=== PATIENT | male | born 1960 | race Caucasian/White ===

== ENCOUNTER 2017-07-23 16:10 | Inpatient (IN) | payer MEDICARE, BC ==
[~2017-07-23] VITALS: Ht 157.5 cm; Wt 91.5 kg
[~2017-07-23 16:10] MED LIST: AZIT600T4 PO; DARU600T3 PO; HYDR-3504 PO; RITO100T PO; SULF1TAB7 PO; TRUV PO
[2017-07-23] MEDS ORDERED: SODIUM CHLORIDE 0.9% 1L BAG IV* STA (18:05)
[2017-07-23] MEDS ORDERED: ACETAMINOPHEN 325 MG TAB PO STA (18:05)
[2017-07-23] MEDS ORDERED: CEFTRIAXONE 1 GM/50 ML (PMX) 50 ML IVPB ONE (18:30)
[2017-07-23] MEDS ORDERED: VANCOMYCIN 1 GM (PMX) 250 ML IVPB SCH (18:30)
--- NOTE | 2017-07-23 19:08 | RADRPT ---
PROCEDURE: XR Chest. CLINICAL INDICATION: Sepsis. TECHNIQUE: Single frontal view. COMPARISON: 11/21/2012. FINDINGS: The lungs are clear. The heart size is normal. There is no pleural effusion. There is no pneumothorax. IMPRESSION: 1. Normal chest radiograph. 2. No significant change from 11/21/2012. RPTAT: QQ .Vasquez Roman MD, MD Date Time Electronically viewed and signed by .Vasquez Roman MD, MD on 07/23/2017 19:08 .R/
[2017-07-23 19:24] LABS: ABNORMAL IP MESSAGE 1; BASOPHIL # 0.1 10^3/ul (0.0-0.1); BASOPHILS % 0.4 % (0.0-2.0); EOSINOPHILS # 0.2 10^3/ul (0.0-0.5); EOSINOPHILS % 1.2 % (0.0-7.0); HEMOGLOBIN 12.2 g/dl (14.0-18.0); LYMPHOCYTES # 2.1 10^3/ul (0.8-2.9); LYMPHOCYTES % 10.8 % (15.0-51.0); MEAN CORPUSCULAR HEMOGLOBIN 34.7 pg (29.0-33.0); MEAN CORPUSCULAR VOLUME 105.1 fl (82.0-101.0); MEAN PLATELET VOLUME 10.8 fl (7.4-10.4); MONOCYTE # 1.6 10^3/ul (0.3-0.9); MONOCYTES % 8.1 % (0.0-11.0); NEUTROPHIL # 15.3 10^3/ul (1.6-7.5); NEUTROPHILS % 78.6 % (39.0-77.0); PLATELET COUNT 335 10^3/UL (140-415); POSITIVE DIFF @See below; RED BLOOD COUNT 3.52 10^6/ul (4.70-6.10); RED CELL DISTRIBUTION WIDTH 12.6 % (11.5-14.5); WHITE BLOOD COUNT 19.5 10^3/ul (4.8-10.8)
--- NOTE | 2017-07-23 19:25 | RADRPT ---
PROCEDURE: Noncontrast CT examination of the right hip CLINICAL INDICATION: Right hip redness. TECHNIQUE: Noncontrast CT examination of the right hip, with axial, sagittal and coronal reformatte d images. Post process 3-D rotating MIP images were obtained over the right hip. CTDI: 49.33 and DLP: 1404.48. COMPARISON: None. FINDINGS: Mild hematoma versus phlegmon versus abscess in the soft tissues of the lateral aspect of the right hip, somewhat obscured secondary to metallic artifact. This measures about 45 mm in the craniocaudad dimension by 31 mm in the transverse dimension by 25 mm in AP dimension, and there is surrounding f at inflammatory changes over the lateral right hip and thigh, as well as mild skin thickening. Right hip arthroplasty is seen with cerclage wire fixation at the lateral greater trochanter. There is no evident hardware complication. There is no evident acute fracture. IMPRESSION: 1. Mild hematoma versus phlegmon versus abscess in the soft tissues of the lateral aspect of the rig ht hip. 2. Ultrasound examination may be of further use. RPTAT: [facility]U Physician Tierra Date Time Electronically viewed and signed by Physician Tierra on 07/23/2017 19:25 RS/
[2017-07-23 19:32] LABS: ADD UMIC YES; UR ASCORBIC ACID NEGATIVE (NEGATIVE); UR BILIRUBIN (Dip) NEGATIVE (NEGATIVE); UR BLOOD (Dip) NEGATIVE (NEGATIVE); UR CLARITY CLEAR (CLEAR); UR COLOR AMBER (YELLOW); UR GLUCOSE (Dip) NEGATIVE (NEGATIVE); UR KETONES (Dip) NEGATIVE (NEGATIVE); UR LEUKOCYTE ESTERASE (Dip) TRACE Leu/ul (NEGATIVE); UR NITRITE (Dip) NEGATIVE (NEGATIVE); UR RBC 1 /HPF (0-5); UR SPECIFIC GRAVITY (Dip) 1.023 (1.003-1.030); UR TOTAL PROTEIN (Dip) 1+ mg/dl (NEGATIVE); UR UROBILINOGEN (Dip) 2+ mg/dL (NEGATIVE)
[2017-07-23 19:38] LABS: INR 1.09; PROTIME 14.1 Sec (12.2-14.2); PT RATIO 1.1
[2017-07-23 19:43] LABS: PARTIAL THROMBOPLASTIN TIME 29.1 Sec (25.0-35.0)
[2017-07-23 19:48] LABS: CALCIUM 9.2 mg/dl (8.4-10.2); CREATININE 1.22 mg/dl (0.61-1.24); POTASSIUM 4.9 mmol/L (3.5-5.1)
[2017-07-23 20:04] LABS: C-REACTIVE PROTEIN 18.9 mg/dl (0.0-0.9)
--- NOTE | 2017-07-23 20:41 | ERD ---
ER Documentation Chief Complaint Chief Complaint right hip pain x5 days HPI This is a 56-year-old male presents to the ER with right hip pain that started . He states that pain began after he was running towards the bus he was going to take. Pain began as a burning pain and now is described as a throbbing pain. He states that his right hip is red and swollen and it also feels hard. Patient has had a fever over the last 3 days. 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 The last hip replacement which was his right hip was 2 years ago. Patient denies any numbness or tingling of his lower extremity. He denies any groin pain. Patient has a past medical history of HIV, and is compliant with all his medications. He denies any chest pain or shortness of breath. ROS 12 point review of systems was done, all negative except per HPI. Medications Home Meds Reported Medications Ritonavir* (Norvir*) 100 Mg Tablet, 1 TAB PO 11/14/12 Darunavir Ethanolate* (Prezista*) 600 Mg Tablet, 1 TAB PO 11/14/12 Azithromycin* (Azithromycin*) 600 Mg Tablet, 1 TAB PO 11/14/12 Sulfamethoxazole-Trimethoprim* (Bactrim* DS) 1 Tab Tab, 1 TAB PO 11/14/12 Hydrocodone Bit-Acetaminophen (Hydrocodone-APAP) 1 Tab Tablet, 1 TAB PO 11/14/12 Emtricitabine-Tenofovir* (Truvada*) 1 Tab Tab, 1 TAB PO DAILY 11/14/12 Allergies Allergies: Coded Allergies: No Known Allergy (Unverified , 11/14/12) PMhx/Soc Medical and Surgical Hx: pt denies Surgical Hx History of Surgery: No Anesthesia Reaction: No Hx Neurological Disorder: No Hx Respiratory Disorders: Yes (PNA) Hx Cardiac Disorders: No Hx Psychiatric Problems: No Hx Miscellaneous Medical Probl: No Hx Alcohol Use: No Hx Substance Use: No Hx Tobacco Use: No Smoking Status: Never smoker Physical Exam Vitals Vital Signs Date Time Temp Pulse Resp B/P Pulse Ox O2 Delivery O2 Flow Rate FiO2 07/23/17 16:23 99.7 110 18 131/77 96 Physical Exam GENERAL: The patient is well developed and appropriate for usual state of health , in no apparent distress. HEENT: Atraumatic. CHEST: Clear to auscultation bilaterally. There are no rales, wheezes or rhonchi. HEART: Regular rate and rhythm. No murmurs, clicks, rubs or gallops. ABDOMEN: Soft, nontender and nondistended. EXTREMITIES: There is an area of erythema to the right hip, it is warm and tender to palpation. Patient has normal abduction of the right, however has a painful abduction of the hip. NEURO: Alert and oriented. Cranial nerves II through XII are intact. Motor strength in all 4 extremities with 5/5 strength. Sensation grossly intact. Normal speech and gait. SKIN: There is no apparent rash or petechia. The skin is warm and dry. Result Diagram: 07/23/17190607/23/171906 Results 24 hrs Laboratory Tests Test 07/23/17 19:00 07/23/17 19:07 Urine Color SADIA Urine Clarity CLEAR Urine pH 5.0 Urine Specific [place] 1.023 Urine Ketones NEGATIVEmg/dL Urine Nitrite NEGATIVEmg/dL Urine Bilirubin NEGATIVEmg/dL Urine Urobilinogen 2+mg/dL Urine Leukocyte Esterase TRACELeu/ul Urine Microscopic RBC 1/HPF Urine Microscopic WBC 3/HPF Urine Hemoglobin NEGATIVEmg/dL Urine Glucose NEGATIVEmg/dL Urine Total Protein 1+mg/dl White Blood Count 19.510^3/ul Red Blood Count 3.5210^6/ul Hemoglobin 12.2g/dl Hematocrit 37.0% Mean Corpuscular Volume 105.1fl Mean Corpuscular Hemoglobin 34.7pg Mean Corpuscular Hemoglobin Concent 33.0g/dl Red Cell Distribution Width 12.6% Platelet Count 82986^3/UL Mean Platelet Volume 10.8fl Neutrophils % 78.6% Lymphocytes % 10.8% Monocytes % 8.1% Eosinophils % 1.2% Basophils % 0.4% Nucleated Red Blood Cells % 0.0/100WBC Neutrophils # 15.310^3/ul Lymphocytes # 2.110^3/ul Monocytes # 1.610^3/ul Eosinophils # 0.210^3/ul Basophils # 0.110^3/ul Nucleated Red Blood Cells # 0.010^3/ul Prothrombin Time 14.1Sec Prothrombin Time Ratio 1.1 INR International Normalized Ratio 1.09 Activated Partial Thromboplast Time 29.1Sec Sodium Level 142mmol/L Potassium Level 4.9mmol/L Chloride Level 105mmol/L Carbon Dioxide Level 26mmol/L Anion Gap 16 Blood Urea Nitrogen 20mg/dl Creatinine 1.22mg/dl Glucose Level 88mg/dl Lactic Acid Level 1.8mmol/L Calcium Level 9.2mg/dl Total Bilirubin 0.0mg/dl Direct Bilirubin 0.00mg/dl Indirect Bilirubin 0.0mg/dl Aspartate Amino Transf (AST/SGOT) 99IU/L Alanine Aminotransferase (ALT/SGPT) 107IU/L Alkaline Phosphatase 278IU/L C-Reactive Protein 18.9mg/dl Total Protein 8.0g/dl Albumin 4.0g/dl Globulin 4.00g/dl Albumin/Globulin Ratio 1.00 Current Medications Medications (Trade) Dose Ordered Sig/Lesvia Route PRN Reason Start Time Stop Time Status Last Admin Dose Admin Sodium Chloride (NS) 2,840 ml BOLUS OVER 2 HOURS STAT IV* 07/23/17 18:05 07/23/17 18:09 DC 07/23/17 18:05 Acetaminophen 650 mg 650 mg ONCE STAT PO 07/23/17 18:05 07/23/17 18:09 DC 07/23/17 19:22 Ceftriaxone Sodium 50 ml @ 100 mls/hr ONCE ONCE IVPB 07/23/17 18:30 07/23/17 18:59 DC 07/23/17 19:15 Vancomycin HCl (Vancocin) 250 ml @ 125 mls/hr ONCE IVPB 07/23/17 18:30 07/23/17 20:29 DC 07/23/17 19:34 [place] [id number] Radiology Main Line: [phone] DIAGNOSTIC IMAGING REPORT Patient: BOBBI CHAND : 1960 Age: 56 Sex: M MR #: [id number] DOS: 07/23/17 0000 Ordering MD: ML MURILLO PA-C Location: [facility] Room/Bed: PROCEDURE: Noncontrast CT examination of the right hip CLINICAL INDICATION: Right hip redness. TECHNIQUE: Noncontrast CT examination of the right hip, with axial, sagittal and coronal reformatted images. Post process 3-D rotating MIP images were obtained over the right hip. CTDI: 49.33 and DLP: 1404.48. COMPARISON: None. FINDINGS: Mild hematoma versus phlegmon versus abscess in the soft tissues of the lateral aspect of the right hip, somewhat obscured secondary to metallic artifact. This measures about 45 mm in the craniocaudad dimension by 31 mm in the transverse dimension by 25 mm in AP dimension, and there is surrounding fat inflammatory changes over the lateral right hip and thigh, as well as mild skin thickening. Right hip arthroplasty is seen with cerclage wire fixation at the lateral greater trochanter. There is no evident hardware complication. There is no evident acute fracture. IMPRESSION: 1. Mild hematoma versus phlegmon versus abscess in the soft tissues of the lateral aspect of the right hip. 2. Ultrasound examination may be of further use. RPTAT: [facility]U Physician Tierra Date Time Electronically viewed and signed by Physician Tierra on 07/23/2017 19:25 RS/ CC: ML MURILLO Procedures/[facility] EKG [address] elevation no T-wave inversion. This EKG by Dr. Rincon. Potential diagnosis includes but is not limited to; cellulitis, abscess, septic joint, osteomyelitis, rhabdo, necrotizing fasciitis. This patient was examined by myself and memory supervising physician Dr. Romero. Patient does appear to have cellulitis, he does have leukocytosis and is HIV positive. Because this patient will be admitted for further management and care as he is immunocompromised. Departure Diagnosis: Primary Impression: Cellulitis Condition: Stable ML MURILLO Jul 23, 2017 20:41
[2017-07-23 21:45] VITALS: TEMP 97.7
[2017-07-23] MEDS ORDERED: ONDANSETRON 4 MG INJ IV PRN (22:30)
[2017-07-23] MEDS ORDERED: ACETAMINOPHEN 325 MG TAB PO PRN (22:30)
[2017-07-23] MEDS ORDERED: ALBUTEROL/IPRATROPIUM (NEB) 3 ML AMP HHN PRN (22:30)
[2017-07-23] MEDS ORDERED: VANCOMYCIN IV PER PHARMACY XX SCH (22:30)
[2017-07-23] MEDS ORDERED: NACL 0.9% 3 ML SYG IV SCH (22:30)
[2017-07-23 23:00] VITALS: BP 123/75; PULSE 87; RESP 18; Ht 157.5 cm; Wt 91.5 kg
[2017-07-23] MEDS: SOD CHLORIDE 0.45% 1,000 ML IV SCH (23:22)
[2017-07-23] MEDS: morphine 4 MG/ML VIAL IV PRN (23:22)
[2017-07-23] MEDS ORDERED: HYDR25CA98 PO (23:45)
[2017-07-23] MEDS ORDERED: LISI10TA2 PO (23:52)
[2017-07-23] MEDS ORDERED: CHOL400C PO (23:52)
[2017-07-23] MEDS ORDERED: ZOLP5TAB PO (23:52)
[2017-07-23] MEDS ORDERED: VITA1TAB83 PO (23:53)
[2017-07-23] MEDS ORDERED: CALC650T12 PO (23:53)
[2017-07-23] MEDS ORDERED: ABAC1TAB12 PO (23:53)
[2017-07-23] MEDS ORDERED: [UNRECOGNIZED DRUG - CODE] SL (23:53)
[2017-07-23] MEDS ORDERED: TRAM50TA2 PO (23:53)
[2017-07-23] MEDS ORDERED: PHEN30CA2 PO (23:53)
[2017-07-24] MEDS ORDERED: ZOLPIDEM 5 MG TAB PO PRN (00:30)
[2017-07-24 02:00] VITALS: BP 113/69; RESP 18
[2017-07-24] MEDS: morphine 4 MG/ML VIAL IV PRN ×4 (03:17→21:38)
[2017-07-24 05:25] LABS: BASOPHIL # 0.1 10^3/ul (0.0-0.1); BASOPHILS % 0.4 % (0.0-2.0); EOSINOPHILS # 0.3 10^3/ul (0.0-0.5); EOSINOPHILS % 2.6 % (0.0-7.0); HEMATOCRIT 32.8 % (42.0-52.0); HEMOGLOBIN 10.4 g/dl (14.0-18.0); LYMPHOCYTES # 1.7 10^3/ul (0.8-2.9); LYMPHOCYTES % 12.7 % (15.0-51.0); MEAN CORPUSCULAR HEMOGLOBIN 33.8 pg (29.0-33.0); MEAN CORPUSCULAR HGB CONC 31.7 g/dl (32.0-37.0); MEAN CORPUSCULAR VOLUME 106.5 fl (82.0-101.0); MEAN PLATELET VOLUME 10.3 fl (7.4-10.4); MONOCYTE # 1.2 10^3/ul (0.3-0.9); MONOCYTES % 9.2 % (0.0-11.0); NEUTROPHIL # 9.8 10^3/ul (1.6-7.5); NEUTROPHILS % 74.3 % (39.0-77.0); PLATELET COUNT 275 10^3/UL (140-415); RED BLOOD COUNT 3.08 10^6/ul (4.70-6.10); RED CELL DISTRIBUTION WIDTH 12.7 % (11.5-14.5); WHITE BLOOD COUNT 13.2 10^3/ul (4.8-10.8)
[2017-07-24 05:48] LABS: ALBUMIN 3.1 g/dl (3.3-4.9); ALBUMIN/GLOBULIN RATIO 0.77; CALCIUM 8.5 mg/dl (8.4-10.2); CREATININE 1.41 mg/dl (0.61-1.24); MAGNESIUM 2.1 mg/dl (1.7-2.5); PHOSPHORUS 4.1 mg/dl (2.5-4.9); POTASSIUM 4.5 mmol/L (3.5-5.1); TOTAL PROTEIN 7.1 g/dl (6.1-8.1)
[2017-07-24] MEDS ORDERED: VANCOMYCIN 1 GM in NS 250 ML IVPB SCH (06:00)
--- NOTE | 2017-07-24 07:22 | HP ---
Date/Time of Note Date/Time of Note DATE: 07/24/17 TIME: 07:08 Assessment/Plan VTE Prophylaxis VTE Prophylaxis Intervention: SCD's Lines/Catheters IV Catheter Type (from Nrs): Peripheral IV Assessment/Plan Assessment/Plan 1. Right hip cellulitis -CT scan with probable hematoma versus abscess -Plan is to treat with IV antibiotic -will place an ID consult -Surgical vs Ortho consult as needed 2. Sepsis, as evidenced by leukocytosis and tachycardia, secondary to right hip cellulitis -See #1 3. Acute kidney injury -will treat with IV fluid for now 4. Abnormal LFTs -Obtain RUQ ultrasound 5. History of HIV -Check CD4 count and viral load -Continue home medication -ID to follow HPI/ROS Admit Date/Time Admit Date/Time Jul 23, 2017 at 21:56 Hx of Present Illness This is a 56-year-old male with a history of HIV, bilateral lateral DVT and PE diagnosed about 5 years ago, and history of bilateral hip replacement who presented to ER complaining of right hip pain, redness and swelling. It seems like hip pain started about 5 days ago while he was running. He then noted a progressively worsening redness and swelling. Reported fever for the past few days. Denied falling down or any other recent trauma. When he presented to the ER, CT of the right hip showed Mild hematoma versus phlegmon versus abscess in the soft tissues of the lateral aspect of the right hip. Labs shows WBC of almost 20,000. CRP almost 19. PMH/Family/Social Social History Smoking Status: Former smoker Exam/Review of Systems Vital Signs Vitals Vital Signs Date Time Temp Pulse Resp B/P Pulse Ox O2 Delivery O2 Flow Rate FiO2 07/24/17 02:00 98.0 75 18 113/69 96 07/23/17 23:00 Room Air Intake and Output 07/23/17 07/23/17 07/24/17 15:00 23:00 07:00 Intake Total 1150 ml Output Total 1150 ml Balance 0 ml Exam Constitutional: alert, oriented Head: normocephalic Eyes: EOMI Respiratory: clear to auscultation, normal air movement Cardiovascular: other (Tachycardic with regular rhythm) Gastrointestinal: soft Musculoskeletal: other (Right hip swelling, erythema and tenderness) Labs Result Diagram: 07/24/17 0447 07/24/17 044 Medications Medications Current Medications Sodium Chloride (1/2 NS) 1,000 ml @ 100 mls/hr Q10H IV Last administered on 23:22; Admin Dose 100 MLS/HR; Start 07/23/17 at 22:29; Stop 07/24/17 at 23:00 Ondansetron HCl (Zofran Inj) 4 mg Q6H PRN IV NAUSEA AND/OR VOMITING; Start at 22:30 Acetaminophen (Tylenol Tab) 650 mg Q6H PRN PO PAIN LEVEL 1-3 OR FEVER; Start 07/23/17 at 22:30 Morphine Sulfate 3 mg 3 mg Q4H PRN IV pain Last administered on 07/24/17 03: 17; Admin Dose 3 MG; Start 07/23/17 at 22:30 Cefepime HCl 50 ml @ 100 mls/hr Q12 IVPB ; Start 07/24/17 at 09:00 Vancomycin HCl (Vancocin) 250 ml @ 125 mls/hr Q12H IVPB Last administered on 07/24/17 05:15; Admin Dose 125 MLS/HR; Start 07/24/17 at 06:00 Hydroxyzine Pamoate (Vistaril) 25 mg DAILY PO ; Start 07/24/17 at 09:00 Tramadol HCl (Ultram) 50 mg Q6 PRN PO PAIN; Start 07/24/17 at 00:30 Zolpidem Tartrate (Ambien) 5 mg QHS PRN PO INSOMNIA; Start 07/24/17 at 00:30 Cyanocobalamin (Vitamin B12) 1,000 mcg DAILY PO ; Start 07/24/17 at 09:00 Cholecalciferol (Vitamin D) 5,000 unit DAILY PO ; Start 07/24/17 at 09:00 Miscellaneous Information 15 mg DAILY PO ; Start 07/24/17 at 09:00; Status UNV Lamivudine (Epivir) 300 mg DAILY PO ; Start 07/24/17 at 09:00 Abacavir Sulfate (Ziagen) 600 mg DAILY PO ; Start 07/24/17 at 09:00 Dolutegravir Sodium (Tivicay) 50 mg DAILY PO ; Start 07/24/17 at 09:00 Influenza Virus Vaccine (Fluzone) 0.5 ml ONCE ONCE IM* ; Start 07/25/17 at 09: 00; Stop 07/25/17 at 09:01 LAUREN JOHNSTON MD Jul 24, 2017 07:19
[2017-07-24 07:37] VITALS: BP 130/78; RESP 18
[2017-07-24] MEDS: SOD CHLORIDE 0.45% 1,000 ML IV SCH (08:29)
[2017-07-24] MEDS ORDERED: PHENTERMINE HCL 15 MG PO SCH (09:00)
--- NOTE | 2017-07-24 10:00 | RADRPT ---
PROCEDURE: Right upper quadrant abdominal ultrasound. CLINICAL INDICATION: Abdominal pain, abnormal liver function tests TECHNIQUE: Looney scale and color doppler ultrasound images of the right upper quadrant of the abdom en. COMPARISON: Abdominal ultrasound 11/21/2012 FINDINGS: Pancreas: Visualized portions appear of normal echogenicity without focal lesions. Liver: Morphology: The right lobe of the liver is elongated measuring up to 17.3 cm which may reflect Ried el's lobe configuration. Contour:Normal, no evidence of nodularity. Echogenicity: Normal. Focal lesions:None. Main portal vein: Patent with hepatopetal flow. Biliary System: Gallbladder wall: Normal thickness. Gallstones: None. Intrahepatic bile ducts: Normal caliber. Common bile duct diameter (mm): 5.3 Kidneys: Right length (cm) : 11.4 Right cortical thickness: Normal. Echogenicity: Normal. Hydronephrosis: None. Renal calculi: None. Focal lesions: None. Free fluid/ascites: None. Abdominal aorta: Not visualized by the smudger. Other findings: None. IMPRESSION: Normal gallbladder without gallstones. Normal appearance the liver. Normal examination. RPTAT: AADD .Morris Lock MD, MD Date Time Electronically viewed and signed by .Morris Lock MD, on 07/24/2017 10:00 .B/
--- NOTE | 2017-07-24 10:05 | RADRPT ---
PROCEDURE: Nonvascular ultrasound examination of the soft tissues of the right lower extremity. CLINICAL INDICATION: Right lower extremity pain. Evaluate for right hip abscess. TECHNIQUE: Looney scale and color Doppler sonographic images of the soft tissues of the right lower extremity are obtained of the area of clinical concern. COMPARISON: CT right lower extremity 07/23/2017 FINDINGS: 7 x 1.5 cm fluid collection in the subcutaneous soft tissues at a depth of 2.0 cm possibly represent ing a chronic hematoma, seroma, or abscess. IMPRESSION: 7 x 1.5 cm fluid collection in the subcutaneous soft tissues at a depth of 2.0 cm possibly represent ing a chronic hematoma, seroma, or abscess of the right hip. RPTAT: AADD .Morris Lock MD, MD Date Time Electronically viewed and signed by .Morris Lock MD, on 07/24/2017 10:05 .B/
[2017-07-24] MEDS: CEFEPIME 1GM/50 ML (PMX) 50 ML IVPB SCH ×2 (11:06→21:14)
[2017-07-24] MEDS: LAMIVUDINE 150 MG TAB PO SCH (11:07)
[2017-07-24] MEDS: DOLUTEGRAVIR SODIUM 50 MG TABLET PO SCH (11:07)
[2017-07-24] MEDS: CYANOCOBALAMIN 500 MCG TAB PO SCH (11:08)
[2017-07-24] MEDS: hydrOXYzine PAMOATE 25 MG CAP PO SCH (11:08)
[2017-07-24] MEDS: ABACAVIR 300 MG TAB PO SCH (11:11)
[2017-07-24] MEDS: traMADol 50 MG TAB PO PRN (12:06)
[2017-07-24] MEDS: CHOLECALCIFEROL 1,000 UNIT TAB PO SCH (13:23)
[2017-07-24 14:00] VITALS: BP 126/74; RESP 20
--- NOTE | 2017-07-24 14:56 | PN ---
Date/Time of Note Date/Time of Note DATE: 07/24/17 TIME: 14:45 Assessment/Plan VTE Prophylaxis VTE Prophylaxis Intervention: SCD's Lines/Catheters IV Catheter Type (from Nrsg): Peripheral IV Assessment/Plan Chief Complaint/Hosp Course A/P: 56-year-old male with a history of HIV, bilateral lateral DVT and PE diagnosed about 5 years ago, and history of bilateral hip replacement who presented to ER complaining of right hip pain, redness and swelling. 1. Right hip cellulitis - and CT scan with probable hematoma versus abscess -Continue IV antibiotics - f/u ID consult rec's -Surgical vs Ortho consult as needed -I spoke with orthopedic surgery team over the phone, they are recommending patient be transferred back to hospital where he had his surgery performed. Per patient apparently this was performed in October 2014 at [facility] in [facility]. We will start with requesting medical records from them. 2. Sepsis, as evidenced by leukocytosis and tachycardia, secondary to right hip cellulitis -See #1 3. Acute kidney injury -will treat with IV fluid for now 4. Abnormal LFTs - RUQ ultrasound performed. -Monitor for now 5. History of HIV -f/u CD4 count and viral load -Continue home medication -ID to follow Problems: Subjective 24 Hr Interval Summary Free Text/Dictation No acute events overnight. Exam/Review of Systems Vital Signs Vitals Vital Signs Date Time Temp Pulse Resp B/P Pulse Ox O2 Delivery O2 Flow Rate FiO2 07/24/17 07:37 98.0 77 18 130/78 94 07/23/17 23:00 Room Air Intake and Output 07/23/17 07/23/17 07/24/17 15:00 23:00 07:00 Intake Total 1150 ml Output Total 1150 ml Balance 0 ml Exam Constitutional: alert, oriented Head: normocephalic Eyes: EOMI Respiratory: clear to auscultation, normal air movement Cardiovascular: S1, S2 heard Gastrointestinal: soft Musculoskeletal: other (Right hip swelling, erythema and tenderness) Results Result Diagram: 07/24/17 0447 07/24/177 Results 24 hrs Laboratory Tests Test 07/23/17 19:00 07/23/17 19:07 07/23/17 20:50 07/23/17 23:16 Urine Color SADIA Urine Clarity CLEAR Urine pH 5.0 Urine Specific [place] 1.023 Urine Ketones NEGATIVE Urine Nitrite NEGATIVE Urine Bilirubin NEGATIVE Urine Urobilinogen 2+ H Urine Leukocyte Esterase TRACE A Urine Microscopic RBC 1 Urine Microscopic WBC 3 Urine Hemoglobin NEGATIVE Urine Glucose NEGATIVE Urine Total Protein 1+ H White Blood Count 19.5 H Red Blood Count 3.52 L Hemoglobin 12.2 L Hematocrit 37.0 L Mean Corpuscular Volume 105.1 H Mean Corpuscular Hemoglobin 34.7 H Mean Corpuscular Hemoglobin Concent 33.0 Red Cell Distribution Width 12.6 Platelet Count 335 Mean Platelet Volume 10.8 H Neutrophils % 78.6 H Lymphocytes % 10.8 L Monocytes % 8.1 Eosinophils % 1.2 Basophils % 0.4 Nucleated Red Blood Cells % 0.0 Neutrophils # 15.3 H Lymphocytes # 2.1 Monocytes # 1.6 H Eosinophils # 0.2 Basophils # 0.1 Nucleated Red Blood Cells # 0.0 Prothrombin Time 14.1 Prothrombin Time Ratio 1.1 INR International Normalized Ratio 1.09 Activated Partial Thromboplast Time 29.1 Sodium Level 142 Potassium Level 4.9 Chloride Level 105 Carbon Dioxide Level 26 Anion Gap 16 Blood Urea Nitrogen 20 Creatinine 1.22 Glucose Level 88 Lactic Acid Level 1.8 0.8 0.8 Calcium Level 9.2 Total Bilirubin 0.0 L Direct Bilirubin 0.00 Indirect Bilirubin 0.0 Aspartate Amino Transf (AST/SGOT) 99 H Alanine Aminotransferase (ALT/SGPT) 107 H Alkaline Phosphatase 278 H C-Reactive Protein 18.9 H Total Protein 8.0 Albumin 4.0 Globulin 4.00 H Albumin/Globulin Ratio 1.00 Test 07/24/17 04:47 White Blood Count 13.2 #H Red Blood Count 3.08 L Hemoglobin 10.4 L Hematocrit 32.8 L Mean Corpuscular Volume 106.5 H Mean Corpuscular Hemoglobin 33.8 H Mean Corpuscular Hemoglobin Concent 31.7 L Red Cell Distribution Width 12.7 Platelet Count 275 Mean Platelet Volume 10.3 Neutrophils % 74.3 Lymphocytes % 12.7 L Monocytes % 9.2 Eosinophils % 2.6 Basophils % 0.4 Nucleated Red Blood Cells % 0.0 Neutrophils # 9.8 H Lymphocytes # 1.7 Monocytes # 1.2 H Eosinophils # 0.3 Basophils # 0.1 Nucleated Red Blood Cells # 0.0 Sodium Level 145 H Potassium Level 4.5 Chloride Level 114 H Carbon Dioxide Level 25 Anion Gap 11 Blood Urea Nitrogen 23 H Creatinine 1.41 H Glucose Level 98 Calcium Level 8.5 Phosphorus Level 4.1 Magnesium Level 2.1 Total Bilirubin 0.0 L Direct Bilirubin 0.00 Indirect Bilirubin 0.0 Aspartate Amino Transf (AST/SGOT) 53 H Alanine Aminotransferase (ALT/SGPT) 88 H Alkaline Phosphatase 214 H Total Protein 7.1 Albumin 3.1 L Globulin 4.00 H Albumin/Globulin Ratio 0.77 Medications Medications Current Medications Sodium Chloride (1/2 NS) 1,000 ml @ 100 mls/hr Q10H IV Last administered on 23:22; Admin Dose 100 MLS/HR; Start 07/23/17 at 22:29; Stop 07/24/17 at 23:00 Ondansetron HCl (Zofran Inj) 4 mg Q6H PRN IV NAUSEA AND/OR VOMITING; Start at 22:30 Acetaminophen (Tylenol Tab) 650 mg Q6H PRN PO PAIN LEVEL 1-3 OR FEVER; Start 07/23/17 at 22:30 Morphine Sulfate 3 mg 3 mg Q4H PRN IV pain Last administered on 07/24/17 08: 17; Admin Dose 3 MG; Start 07/23/17 at 22:30 Cefepime HCl (Maxipime 1gm/50 ml (Pmx)) 50 ml @ 100 mls/hr Q12 IVPB Last administered on 07/24/17 11:06; Admin Dose 100 MLS/HR; Start 07/24/17 at 09: 00 Hydroxyzine Pamoate (Vistaril) 25 mg DAILY PO Last administered on 07/24/17 11:08; Admin Dose 25 MG; Start 07/24/17 at 09:00 Tramadol HCl (Ultram) 50 mg Q6 PRN PO PAIN Last administered on 07/24/17 12: 06; Admin Dose 50 MG; Start 07/24/17 at 00:30 Zolpidem Tartrate (Ambien) 5 mg QHS PRN PO INSOMNIA; Start 07/24/17 at 00:30 Cyanocobalamin (Vitamin B12) 1,000 mcg DAILY PO Last administered on 11:08; Admin Dose 1,000 MCG; Start 07/24/17 at 09:00 Cholecalciferol (Vitamin D) 5,000 unit DAILY PO Last administered on 13:23; Admin Dose 5,000 UNIT; Start 07/24/17 at 09:00 Miscellaneous Information 15 mg DAILY PO ; Start 07/24/17 at 09:00; Status UNV Lamivudine (Epivir) 300 mg DAILY PO Last administered on 07/24/17 11:07; Admin Dose 300 MG; Start 07/24/17 at 09:00 Abacavir Sulfate (Ziagen) 600 mg DAILY PO Last administered on 07/24/17 11:11 ; Admin Dose 600 MG; Start 07/24/17 at 09:00 Dolutegravir Sodium (Tivicay) 50 mg DAILY PO Last administered on 07/24/17 11 :07; Admin Dose 50 MG; Start 07/24/17 at 09:00 Influenza Virus Vaccine 0.5 ml 0.5 ml ONCE ONCE IM* ; Start 07/25/17 at 09:00; Stop 07/25/17 at 09:01 Vancomycin HCl/ Sodium Chloride (Vancocin/NS) 150 ml @ 75 mls/hr Q12H IVPB ; Start 07/24/17 at 18:00 Miscellaneous Information (*Rx Drug Level Order Reminder*) VANCOMYCIN TROUGH AT 0500 ONCE ONCE XX ; Start 07/25/17 at 05:00; Stop 07/25/17 at 05:01 JOHN RODRIGUEZ Jul 24, 2017 14:55
[2017-07-24] MEDS: SOD CHLORIDE 0.9% 1,000 ML IV SCH (15:21)
[2017-07-24] MEDS ORDERED: VANCOMYCIN 750 MG in SOD CHLORIDE 0.9% 150 ML IVPB SCH (18:00)
[2017-07-24 20:13] VITALS: BP 126/82; RESP 18
--- NOTE | 2017-07-24 20:47 | CONS ---
DATE OF ADMISSION: 07/23/2017 DATE OF CONSULTATION: 07/24/2017 TYPE OF CONSULTATION: Infectious disease. REASON FOR CONSULTATION: Antibiotic management. HISTORY OF PRESENT ILLNESS: Gregg Garcia is a 56-year-old male with a history of HIV who comes in with right hip cellulitis and is being seen for antibiotic management. Past problems include: 1. HIV. 2. Bilateral DVT in the past as well as a PE diagnosed about 5 years ago. 3. History of bilateral hip replacements. The patient presented to the emergency room complaining of right hip pain, redness and swelling. Th e hip pain started about 5 days ago while he was running. He then had progressively worsening redne ss and swelling. He reported fever over the last few days. He denied any recent trauma. In the em ergency room, a CT scan of the right hip showed a mild hematoma versus a phlegmon versus abscess in the soft tissue of the lateral aspect of the right hip. His white count was 19,500, H and H of 12.2 and 37, platelet count of 335,000. On 07/24/2017, his white count was 13.2. BUN and creatinine 23 /1.41. Urine has trace leukocyte esterase, 3 white cells per high-power field. A gallbladder ultra sound was done which showed normal gallbladder without stones. A soft tissue ultrasound showed a 7 x 1.5 cm fluid collection in the subcutaneous soft tissue at a depth of 2 cm, possibly representing a chronic hematoma, seroma or abscess of the right hip. Chest x-ray was negative, and lower extremi ty CT showed mild hematoma versus phlegmon as mentioned. Urine culture was negative. The patient w as started on vancomycin and cefepime. He is currently on Abacavir and Tivicay or dolutegravir as w ell as Lamivudine for his HIV. PAST MEDICAL HISTORY: Operations as outlined. Bilateral hip replacements. FAMILY HISTORY: Noncontributory. SOCIAL HISTORY: He does not smoke, drink or abuse drugs. ALLERGIES: NONE TO PENICILLIN, SULFA OR FOODS. MEDICATIONS: Per chart. REVIEW OF SYSTEMS: As per HPI. PHYSICAL EXAMINATION: GENERAL: The patient is a well-developed, well-nourished male who is alert, responsive, in no acute distress. VITAL SIGNS: Stable. He is afebrile. SKIN: Without generalized rash. HEENT: Within normal limits. NECK: Supple. LYMPH NODES: None palpable. CHEST: Decreased breath sounds at the bases. HEART: Without murmur or gallop. ABDOMEN: Soft, nontender, without organosplenomegaly or masses. EXTREMITIES: Without cyanosis, clubbing or edema. He has right hip swelling, erythema and tenderne ss. IMPRESSION AND PLAN: The patient may very well have a hematoma or an abscess, and we would think th at interventional radiology may be able to stick a needle into that and determine what is happening. The orthopedic consult recommended transferring the patient back to the hospital where he had surg arnoldo performed. I will discuss my findings with the hospitalist. His white count now is down to 13. 2. Dictated By: ANASTACIA SEVERINO MD, JD/WILMA Conf#: [id number] DID#: [id number]
[2017-07-25] MEDS: morphine 4 MG/ML VIAL IV PRN ×4 (02:27→20:43)
[2017-07-25 02:33] VITALS: BP 139/90; RESP 17
[2017-07-25] MEDS: SOD CHLORIDE 0.9% 1,000 ML IV SCH ×2 (05:15→17:04)
[2017-07-25 05:54] LABS: CREATININE 1.43 mg/dl (0.61-1.24)
[2017-07-25] MEDS: VANCOMYCIN 1 GM in NS 250 ML IVPB SCH ×2 (06:13→17:22)
[2017-07-25 07:42] VITALS: BP 128/84; RESP 20
[2017-07-25] MEDS ORDERED: [UNRECOGNIZED DRUG - REMARK] XX SCH (08:00)
[2017-07-25] MEDS: ABACAVIR 300 MG TAB PO SCH (08:30)
[2017-07-25] MEDS: CYANOCOBALAMIN 500 MCG TAB PO SCH (08:30)
[2017-07-25] MEDS: CEFEPIME 1GM/50 ML (PMX) 50 ML IVPB SCH ×2 (08:30→20:37)
[2017-07-25] MEDS: LAMIVUDINE 150 MG TAB PO SCH (08:31)
[2017-07-25] MEDS: CHOLECALCIFEROL 1,000 UNIT TAB PO SCH (08:31)
[2017-07-25] MEDS: DOLUTEGRAVIR SODIUM 50 MG TABLET PO SCH (08:31)
[2017-07-25] MEDS: hydrOXYzine PAMOATE 25 MG CAP PO SCH (08:32)
[2017-07-25] MEDS ORDERED: INFLUENZA VIRUS VACCINE 0.5 ML (DISPENSING) IM* ONE (09:00)
[2017-07-25] MEDS ORDERED: LIDOCAINE 1% (MDV) 20 ML INJ ONE (09:51)
[2017-07-25 12:34] LABS: SYN FLD SOURCE HIP FLUID
[2017-07-25 12:35] LABS: SYN FLD CLARITY Turbid
[2017-07-25 13:22] LABS: SYN FLD CRYSTALS NO CRYSTALS SEEN (None seen)
[2017-07-25 14:18] VITALS: BP 120/78; RESP 18
--- NOTE | 2017-07-25 14:36 | PN ---
Date/Time of Note Date/Time of Note DATE: 07/25/17 TIME: 14:34 Assessment/Plan VTE Prophylaxis VTE Prophylaxis Intervention: SCD's Lines/Catheters IV Catheter Type (from Nrs): Peripheral IV Urinary Cath still in place: No Assessment/Plan Chief Complaint/Hosp Course A/P: 56-year-old male with a history of HIV, bilateral lateral DVT and PE diagnosed about 5 years ago, and history of bilateral hip replacement who presented to ER complaining of right hip pain, redness and swelling. 1. Right hip cellulitis - and CT scan with probable hematoma versus abscess - again status post fluid extraction by ultrasound-guided aspiration today -Continue IV antibiotics, follow-up final culture results - f/u ID consult rec's -Surgical vs Ortho consult as needed -I spoke with orthopedic surgery team over the phone, they are recommending patient be transferred back to hospital where he had his surgery performed. Per patient apparently this was performed in October 2014 at [facility] in [facility]. We will start with requesting medical records from them. -In the meantime we will also continue physical therapy and consider home health PT versus SNIF placement as well 2. Sepsis, as evidenced by leukocytosis and tachycardia, secondary to right hip cellulitis-improving -See #1 3. Acute kidney injury -will treat with IV fluid for now 4. Abnormal LFTs - RUQ ultrasound performed. -Monitor for now 5. History of HIV -f/u CD4 count and viral load -Continue home medication -ID to follow Problems: Subjective 24 Hr Interval Summary Free Text/Dictation Patient had ultrasound-guided fluid extraction performed of hip today. No acute events overnight. Exam/Review of Systems Vital Signs Vitals Vital Signs Date Time Temp Pulse Resp B/P Pulse Ox O2 Delivery O2 Flow Rate FiO2 07/25/17 14:18 98.0 80 18 120/78 98 07/23/17 23:00 Room Air Intake and Output 07/24/17 07/24/17 07/25/17 15:00 23:00 07:00 Intake Total 300 ml 1650 ml 1500 ml Output Total 1250 ml 850 ml Balance 300 ml 400 ml 650 ml Exam Constitutional: alert, oriented Head: normocephalic Eyes: EOMI Respiratory: clear to auscultation, normal air movement Cardiovascular: S1, S2 heard Gastrointestinal: soft Musculoskeletal: other (less right hip swelling, erythema and tenderness) Results Result Diagram: 07/24/17 0447 07/25/17 0453 Results 24 hrs Laboratory Tests Test 07/25/17 04:53 07/25/17 10:15 Blood Urea Nitrogen 19 Creatinine 1.43 H Vancomycin Level Trough 8.4 L Pathologist Review (Hematology) Y Synovial Fluid Source HIP FLUID Synovial Fluid Color Synovial Fluid Appearance Turbid Synovial Fluid Volume 20.0 H Synovial Fluid WBC Synovial Fluid Polynuclear WBCs % 76.0 H Synovial Fluid Mononuclear WBCs % 24.0 Synovial Fluid Crystals NO CRYSTALS SEEN Medications Medications Current Medications Ondansetron HCl (Zofran Inj) 4 mg Q6H PRN IV NAUSEA AND/OR VOMITING; Start at 22:30 Acetaminophen (Tylenol Tab) 650 mg Q6H PRN PO PAIN LEVEL 1-3 OR FEVER; Start 07/23/17 at 22:30 Morphine Sulfate 3 mg 3 mg Q4H PRN IV pain Last administered on 07/25/17 12: 30; Admin Dose 3 MG; Start 07/23/17 at 22:30 Cefepime HCl (Maxipime 1gm/50 ml (Pmx)) 50 ml @ 100 mls/hr Q12 IVPB Last administered on 07/25/17 08:30; Admin Dose 100 MLS/HR; Start 07/24/17 at 09: 00 Hydroxyzine Pamoate (Vistaril) 25 mg DAILY PO Last administered on 07/25/17 08:32; Admin Dose 25 MG; Start 07/24/17 at 09:00 Tramadol HCl (Ultram) 50 mg Q6 PRN PO PAIN Last administered on 07/24/17 12: 06; Admin Dose 50 MG; Start 07/24/17 at 00:30 Zolpidem Tartrate (Ambien) 5 mg QHS PRN PO INSOMNIA; Start 07/24/17 at 00:30 Cyanocobalamin (Vitamin B12) 1,000 mcg DAILY PO Last administered on 08:30; Admin Dose 1,000 MCG; Start 07/24/17 at 09:00 Cholecalciferol (Vitamin D) 5,000 unit DAILY PO Last administered on 08:31; Admin Dose 5,000 UNIT; Start 07/24/17 at 09:00 Miscellaneous Information 15 mg DAILY PO ; Start 07/24/17 at 09:00; Status UNV Lamivudine (Epivir) 300 mg DAILY PO Last administered on 07/25/17 08:31; Admin Dose 300 MG; Start 07/24/17 at 09:00 Abacavir Sulfate (Ziagen) 600 mg DAILY PO Last administered on 07/25/17 08:30 ; Admin Dose 600 MG; Start 07/24/17 at 09:00 Dolutegravir Sodium 50 mg 50 mg DAILY PO Last administered on 07/25/17 08:31 ; Admin Dose 50 MG; Start 07/24/17 at 09:00 Sodium Chloride 1,000 ml @ 75 mls/hr [id number] IV Last administered on 05:15; Admin Dose 75 MLS/HR; Start 07/24/17 at 15:00 Vancomycin HCl (Vancocin) 250 ml @ 125 mls/hr Q12H IVPB Last administered on 07/25/17 06:13; Admin Dose 125 MLS/HR; Start 07/25/17 at 06:00 JOHN RODRIGUEZ Jul 25, 2017 14:36
[2017-07-25 16:22] LABS: LYMPHOCYTE - % CD4 (HELPER) 24 % (30-61); LYMPHOCYTE - %CD8 (SUPPRESSOR) 55 % (12-42); LYMPHOCYTE - ABSOLUTE CD4 462 cells/uL (490-1740); LYMPHOCYTE - ABSOLUTE CD8 1035 cells/uL (180-1170); LYMPHOCYTE - CD4/CD8 RATIO 0.45 (0.86-5.00)
--- NOTE | 2017-07-25 16:50 | RADRPT ---
PROCEDURE: Ultrasound guided aspiration of right hip fluid collection. CLINICAL INDICATION: Right hip pain, swelling, and erythema. History of right hip arthroplasty. TECHNIQUE: Prior to the procedure, informed consent was obtained. Risks including bleeding and in fection were explained to the patient. The patient understood was willing to proceed. A procedural pause was performed. The patient's name, date of , and procedure to be performed were verifie d. Using local anesthetic, sterile technique and ultrasound guidance, a 16-gauge needle was advanced in to the fluid collection in the right hip stephie 96 ml of purulent fluid was aspirated The patient ameya erated the procedure well. COMPARISON: Ultrasound of the soft tissues of the right hip dated 07/24/2017. FINDINGS: Images demonstrate the needle within the fluid collection in the right hip. IMPRESSION: 1. Satisfactory ultrasound-guided aspiration of right hip fluid collection. RPTAT: QQ .Vasquez Roman MD, MD Date Time Electronically viewed and signed by .Vasquez Roman MD, on 07/25/2017 16:50 .R/
[2017-07-25 20:00] VITALS: BP 133/90; RESP 20
[2017-07-26 02:00] VITALS: BP 141/91; RESP 20
[2017-07-26] MEDS: SOD CHLORIDE 0.9% 1,000 ML IV SCH ×2 (02:33→21:56)
[2017-07-26] MEDS: morphine 4 MG/ML VIAL IV PRN ×3 (03:25→23:29)
[2017-07-26] MEDS: VANCOMYCIN 1 GM in NS 250 ML IVPB SCH (05:25)
[2017-07-26 07:15] VITALS: BP 112/74; RESP 18
[2017-07-26] MEDS: CEFEPIME 1GM/50 ML (PMX) 50 ML IVPB SCH (09:16)
[2017-07-26] MEDS: ABACAVIR 300 MG TAB PO SCH (09:17)
[2017-07-26] MEDS: DOLUTEGRAVIR SODIUM 50 MG TABLET PO SCH (09:17)
[2017-07-26] MEDS: LAMIVUDINE 150 MG TAB PO SCH (09:17)
[2017-07-26] MEDS: CYANOCOBALAMIN 500 MCG TAB PO SCH (09:18)
[2017-07-26] MEDS: hydrOXYzine PAMOATE 25 MG CAP PO SCH (09:18)
[2017-07-26] MEDS: CHOLECALCIFEROL 1,000 UNIT TAB PO SCH (09:18)
--- NOTE | 2017-07-26 09:45 | PN ---
DATE: 07/25/2017 SUBJECTIVE: No acute changes. The patient is afebrile, alert, still has right hip pain. No fevers . No labs this morning. MICROBIOLOGY: Blood and urine culture negative. ANTIMICROBIALS: The patient is on IV vancomycin with cefepime. He is also on Ziagen and . Al so on Epivir. PHYSICAL EXAMINATION: GENERAL: Obese, well-developed, middle-aged man who is alert, in no distress. HEENT: Head atraumatic, normocephalic. Sclerae anicteric. Buccal mucosa pink. NECK: Supple. CHEST: Rise symmetrical. Breath sounds clear. HEART: S1, S2. ABDOMEN: Soft, bowel tones present. EXTREMITIES: Without cyanosis. ASSESSMENT: 1. Right hip cellulitis, possible septic joint with evidence of hematoma versus abscess per radiogr aphic imaging. 2. Status post sepsis with tachycardia and leukocytosis. 3. Acute kidney injury. 4. Human immunodeficiency virus, well controlled with undetectable viral load. 5. History of bilateral total hip replacement. 6. History of deep venous thrombosis and pulmonary emboli 5 years ago. PLAN: The patient remains stable. Continue present care, antibiotics. Continue the fluid aspirati on from his right hip. Consider ortho evaluation. Dictated By: SANAZ HERNANDEZ [employer] LOADER AND HANDLE ATTACHER for ANASTACIA QUACH/WILMA Conf#: [id number] DID#: [id number]
--- NOTE | 2017-07-26 13:57 | CONS ---
Date/Time of Note Date/Time of Note DATE: 07/26/17 TIME: 13:54 Consult Date/Type/Reason Admit Date/Time Jul 23, 2017 at 21:56 Initial Consult Date Type of Consultation: ID Objective Vital Signs Date Time Temp Pulse Resp B/P Pulse Ox O2 Delivery O2 Flow Rate FiO2 07/26/17 07:15 98.0 60 18 112/74 95 07/23/17 23:00 Room Air Intake and Output 07/25/17 07/25/17 07/26/17 14:59 22:59 06:59 Intake Total 300 ml 1570 ml 1375 ml Output Total 800 ml 2000 ml Balance 300 ml 770 ml -625 ml Results/Medications Result Diagram: 07/24/17 0447 07/25/17 0453 Medications Current Medications Ondansetron HCl (Zofran Inj) 4 mg Q6H PRN IV NAUSEA AND/OR VOMITING; Start at 22:30 Acetaminophen (Tylenol Tab) 650 mg Q6H PRN PO PAIN LEVEL 1-3 OR FEVER; Start 07/23/17 at 22:30 Morphine Sulfate 3 mg 3 mg Q4H PRN IV pain Last administered on 07/26/17 09: 32; Admin Dose 3 MG; Start 07/23/17 at 22:30 Cefepime HCl (Maxipime 1gm/50 ml (Pmx)) 50 ml @ 100 mls/hr Q12 IVPB Last administered on 07/26/17 09:16; Admin Dose 100 MLS/HR; Start 07/24/17 at 09: 00 Hydroxyzine Pamoate (Vistaril) 25 mg DAILY PO Last administered on 07/26/17 09:18; Admin Dose 25 MG; Start 07/24/17 at 09:00 Tramadol HCl (Ultram) 50 mg Q6 PRN PO PAIN Last administered on 07/24/17 12: 06; Admin Dose 50 MG; Start 07/24/17 at 00:30 Zolpidem Tartrate (Ambien) 5 mg QHS PRN PO INSOMNIA; Start 07/24/17 at 00:30 Cyanocobalamin (Vitamin B12) 1,000 mcg DAILY PO Last administered on 09:18; Admin Dose 1,000 MCG; Start 07/24/17 at 09:00 Cholecalciferol (Vitamin D) 5,000 unit DAILY PO Last administered on 09:18; Admin Dose 5,000 UNIT; Start 07/24/17 at 09:00 Lamivudine (Epivir) 300 mg DAILY PO Last administered on 07/26/17 09:17; Admin Dose 300 MG; Start 07/24/17 at 09:00 Abacavir Sulfate (Ziagen) 600 mg DAILY PO Last administered on 07/26/17 09:17 ; Admin Dose 600 MG; Start 07/24/17 at 09:00 Dolutegravir Sodium 50 mg 50 mg DAILY PO Last administered on 07/26/17 09:17 ; Admin Dose 50 MG; Start 07/24/17 at 09:00 Sodium Chloride 1,000 ml @ 75 mls/hr [id number] IV Last administered on 02:33; Admin Dose 75 MLS/HR; Start 07/24/17 at 15:00 Vancomycin HCl (Vancocin) 250 ml @ 125 mls/hr Q12H IVPB Last administered on 07/26/17 05:25; Admin Dose 125 MLS/HR; Start 07/25/17 at 06:00 Miscellaneous Information (*Rx Drug Level Order Reminder*) 1 ONCE ONCE XX ; Start 07/27/17 at 05:00; Stop 07/27/17 at 05:01 Irrigating Solution (Eye Wash) 1 applic ONCE ONCE BOTH EYES ; Start 07/26/17 at 14:00; Stop 07/26/17 at 14:01 Lidocaine (Xylocaine 1% (Mpf)) 5 ml ONCE ONCE SC ; Start 07/26/17 at 14:00; Stop 07/26/17 at 14:01 Assessment/Plan Chief Complaint/Hosp Course SUBJECTIVE: No acute changes. The patient is alert, feels good, no fevers, nad MICROBIOLOGY: Blood and urine culture negative. ANTIMICROBIALS: IV vancomycin Cefepime. He is also on Ziagen Tivicay Epivir. PHYSICAL EXAMINATION: GENERAL: Obese, well-developed, middle-aged man who is alert, in no distress. HEENT: Head atraumatic, normocephalic. Sclerae anicteric. Buccal mucosa pink. NECK: Supple. CHEST: Rise symmetrical. Breath sounds clear. HEART: S1, S2. ABDOMEN: Soft, bowel tones present. EXTREMITIES: Without cyanosis. ASSESSMENT: 1. Right hip cellulitis, possible septic joint with evidence of hematoma versus abscess per radiographic imaging. 2. Status post sepsis with tachycardia and leukocytosis. 3. Acute kidney injury. 4. Human immunodeficiency virus, well controlled with undetectable viral load. 5. History of bilateral total hip replacement. 6. History of deep venous thrombosis and pulmonary emboli 5 years ago. PLAN: The patient remains stable. Continue present care, antibiotics. Pending aspirated fluid cx, recommend to send him home on IV abx to f/u with ortho surgeon who did THR for further rec-s. Consider PICC DW pt/staff Problems: SANAZ HERNANDEZ NP Jul 26, 2017 13:57
[2017-07-26 14:00] VITALS: BP 139/89; RESP 16
[2017-07-26] MEDS ORDERED: LIDOCAINE 1% (MPF) 5 ML VIAL SC ONE (14:00)
[2017-07-26] MEDS ORDERED: OPHTHALMIC IRRIG SOLUTION 120 ML BOTH EYES ONE (14:00)
--- NOTE | 2017-07-26 14:31 | PN ---
Date/Time of Note Date/Time of Note DATE: 07/26/17 TIME: 14:28 Assessment/Plan VTE Prophylaxis VTE Prophylaxis Intervention: SCD's Lines/Catheters IV C[facility]ter Type (from [facility]): Peripheral IV Urinary Cath still in place: No Assessment/Plan Chief Complaint/Hosp Course A/P: 56-year-old male with a history of HIV, bilateral lateral DVT and PE diagnosed about 5 years ago, and history of bilateral hip replacement who presented to ER complaining of right hip pain, redness and swelling. 1. Right hip cellulitis - and CT scan with probable hematoma versus abscess - again status post fluid extraction by ultrasound-guided aspiration Yesterday -Continue IV antibiotics, follow-up final culture results - f/u ID consult rec's - Per discussion with infectious disease team per discussion with infectious disease team, patient likely will need PICC placement , and Rocephin and vancomycin IV antibiotics for the next 2 weeks. -Surgical vs Ortho consult as needed -I spoke with Our orthopedic surgery team over the phone Earlier this admission, they are recommending patient be transferred back to hospital where he had his surgery performed. Per patient apparently this was performed in October 2014 at [facility]. We will start with requesting medical records from them. As well, upon speaking with infectious disease team, it is recommended patient go back to the hospital where his original surgery was performed in October 2014 and be reevaluated by the orthopedic surgeon there who performed the surgery.This was discussed extensively with the patient in the room today, he agrees to this plan , as well as the IV antibiotics at home for the next 2 weeks along with home health PT and nursing. 2. Sepsis, as evidenced by leukocytosis and tachycardia, secondary to right hip cellulitis-improving -See #1 3. Acute kidney injury -will treat with IV fluid for now - Improving 4. Abnormal LFTs - RUQ ultrasound performed. -Monitor for now - Improving 5. History of HIV -f/u CD4 count and viral load -Continue home medication -ID to follow Problems: Subjective 24 Hr Interval Summary Free Text/Dictation Patient had aspiration performed earlier this admission. States less redness noted in the hip area. Seen by infectious disease team today. No fevers. Exam/Review of Systems Vital Signs Vitals Vital Signs Date Time Temp Pulse Resp B/P Pulse Ox O2 Delivery O2 Flow Rate FiO2 07/26/17 14:00 98.8 71 16 139/89 98 07/23/17 23:00 Room Air Intake and Output 07/25/17 07/25/17 07/26/17 15:00 23:00 07:00 Intake Total 300 ml 1570 ml 1375 ml Output Total 800 ml 2000 ml Balance 300 ml 770 ml -625 ml Exam Constitutional: alert, oriented Head: normocephalic Eyes: EOMI Respiratory: clear to auscultation, normal air movement Cardiovascular: S1, S2 heard Gastrointestinal: soft Musculoskeletal: other (less right hip swelling, erythema and tenderness) Results Result Diagram: 07/24/17 0447 07/25/17 0453 Medications Medications Current Medications Ondansetron HCl (Zofran Inj) 4 mg Q6H PRN IV NAUSEA AND/OR VOMITING; Start at 22:30 Acetaminophen (Tylenol Tab) 650 mg Q6H PRN PO PAIN LEVEL 1-3 OR FEVER; Start 07/23/17 at 22:30 Morphine Sulfate (morphine) 3 mg Q4H PRN IV pain Last administered on 09:32; Admin Dose 3 MG; Start 07/23/17 at 22:30 Hydroxyzine Pamoate (Vistaril) 25 mg DAILY PO Last administered on 07/26/17 09:18; Admin Dose 25 MG; Start 07/24/17 at 09:00 Tramadol HCl (Ultram) 50 mg Q6 PRN PO PAIN Last administered on 07/24/17 12: 06; Admin Dose 50 MG; Start 07/24/17 at 00:30 Zolpidem Tartrate (Ambien) 5 mg QHS PRN PO INSOMNIA; Start 07/24/17 at 00:30 Cyanocobalamin (Vitamin B12) 1,000 mcg DAILY PO Last administered on 09:18; Admin Dose 1,000 MCG; Start 07/24/17 at 09:00 Cholecalciferol (Vitamin D) 5,000 unit DAILY PO Last administered on 09:18; Admin Dose 5,000 UNIT; Start 07/24/17 at 09:00 Lamivudine (Epivir) 300 mg DAILY PO Last administered on 07/26/17 09:17; Admin Dose 300 MG; Start 07/24/17 at 09:00 Abacavir Sulfate (Ziagen) 600 mg DAILY PO Last administered on 07/26/17 09:17 ; Admin Dose 600 MG; Start 07/24/17 at 09:00 Dolutegravir Sodium 50 mg 50 mg DAILY PO Last administered on 07/26/17 09:17 ; Admin Dose 50 MG; Start 07/24/17 at 09:00 Sodium Chloride 1,000 ml @ 75 mls/hr [id number] IV Last administered on 02:33; Admin Dose 75 MLS/HR; Start 07/24/17 at 15:00 Daptomycin 550 mg/ Sodium Chloride 100 ml @ 200 mls/hr Q24H IVPB ; Start 07/26 at 14:00; Status UNV Ceftriaxone Sodium (Rocephin) 50 ml @ 100 mls/hr Q24H IVPB ; Start 07/26/17 at 14:00 JOHN RODRIGUEZ Jul 26, 2017 14:31
[2017-07-26] MEDS: CEFTRIAXONE 1 GM/50 ML (PMX) 50 ML IVPB SCH (14:33)
[2017-07-26] MEDS: traMADol 50 MG TAB PO PRN (14:41)
[2017-07-26] MEDS ORDERED: SOD CHLORIDE 0.9% 100 ML ONE (17:46)
[2017-07-26] MEDS: SOD CHLORIDE 0.9% IVPB SCH (18:36)
[2017-07-26] MEDS: DAPTOMYCIN IVPB SCH (18:36)
[2017-07-26 20:00] VITALS: BP 127/86; RESP 19
--- NOTE | 2017-07-26 20:38 | RADRPT ---
PROCEDURE: Ultrasound guidance for placement of needle in left upper extremity vein. CLINICAL INDICATION: PICC placement. TECHNIQUE: Limited sonography of the left upper extremity was performed. Ultrasound images were recorded and st ored in the patient's medical record. COMPARISON: Chest radiograph of the same day. FINDINGS: The ultrasound images demonstrate a patent left upper extremity vein. The PICC line was inserted by the PICC line nurse. IMPRESSION: 1. Ultrasound guidance for a needle placement in a left upper extremity vein. 2. The visualized left upper extremity vein is patent. RPTAT: HH .Emelina Mitchell MD, MD Date Time Electronically viewed and signed by .Emelina Mitchell MD, MD on 07/26/2017 20:38 .N/
[2017-07-27 02:00] VITALS: BP 132/88; RESP 19
[2017-07-27] MEDS: traMADol 50 MG TAB PO PRN ×3 (05:30→22:11)
[2017-07-27 06:26] LABS: BASOPHIL # 0.1 10^3/ul (0.0-0.1); BASOPHILS % 0.7 % (0.0-2.0); EOSINOPHILS # 0.4 10^3/ul (0.0-0.5); HEMATOCRIT 36.7 % (42.0-52.0); HEMOGLOBIN 11.6 g/dl (14.0-18.0); LYMPHOCYTES # 2.9 10^3/ul (0.8-2.9); LYMPHOCYTES % 27.3 % (15.0-51.0); MEAN CORPUSCULAR HEMOGLOBIN 33.3 pg (29.0-33.0); MEAN CORPUSCULAR HGB CONC 31.6 g/dl (32.0-37.0); MEAN CORPUSCULAR VOLUME 105.5 fl (82.0-101.0); MEAN PLATELET VOLUME 10.5 fl (7.4-10.4); MONOCYTE # 0.9 10^3/ul (0.3-0.9); MONOCYTES % 8.4 % (0.0-11.0); NEUTROPHIL # 6.1 10^3/ul (1.6-7.5); NEUTROPHILS % 57.1 % (39.0-77.0); PLATELET COUNT 340 10^3/UL (140-415); RED BLOOD COUNT 3.48 10^6/ul (4.70-6.10); RED CELL DISTRIBUTION WIDTH 12.4 % (11.5-14.5); WHITE BLOOD COUNT 10.6 10^3/ul (4.8-10.8)
[2017-07-27 06:29] LABS: CALCIUM 9.1 mg/dl (8.4-10.2); CREATININE 1.19 mg/dl (0.61-1.24); POTASSIUM 5.1 mmol/L (3.5-5.1)
[2017-07-27] MEDS: morphine 4 MG/ML VIAL IV PRN (07:56)
--- NOTE | 2017-07-27 07:56 | RADRPT ---
PROCEDURE: XR Chest. CLINICAL INDICATION: Check PICC line position. TECHNIQUE: Single frontal view. COMPARISON: 07/23/2017. FINDINGS: There is a left arm PICC line with the tip in the lower superior vena cava. The lungs are clear. The heart size is normal. There is no pleural effusion. There is no pneumothorax. IMPRESSION: 1. Left arm PICC line tip in satisfactory position. 2. Otherwise normal chest radiograph. 3. No other change from 07/23/2017. RPTAT: QQ .Vasquez Roman MD, MD Date Time Electronically viewed and signed by .Vasquez Roman MD, MD on 07/27/2017 07:56 .R/
--- NOTE | 2017-07-27 07:59 | RADRPT ---
PROCEDURE: XR Chest. CLINICAL INDICATION: Check PICC line position. TECHNIQUE: Single frontal view. COMPARISON: Prior study done earlier the same day. FINDINGS: There is a left arm PICC line with the tip in the cavoatrial junction. The lungs are clear. The heart size is normal. There is no pleural effusion. There is no pneumothorax. IMPRESSION: 1. Left arm PICC line tip in the cavoatrial junction in satisfactory position. 2. Otherwise normal chest radiograph. RPTAT: QQ .Vasquez Roman MD, MD Date Time Electronically viewed and signed by .Vasquez Roman MD, MD on 07/27/2017 07:58 .R/
[2017-07-27 08:00] VITALS: BP 123/81; RESP 18
[2017-07-27] MEDS: CHOLECALCIFEROL 1,000 UNIT TAB PO SCH (08:03)
[2017-07-27] MEDS: CYANOCOBALAMIN 500 MCG TAB PO SCH (08:04)
[2017-07-27] MEDS: ABACAVIR 300 MG TAB PO SCH (08:04)
[2017-07-27] MEDS: DOLUTEGRAVIR SODIUM 50 MG TABLET PO SCH (08:04)
[2017-07-27] MEDS: LAMIVUDINE 150 MG TAB PO SCH (08:04)
[2017-07-27] MEDS: hydrOXYzine PAMOATE 25 MG CAP PO SCH (08:04)
[2017-07-27 08:12] LABS: PATH REVIEW CH
[2017-07-27] MEDS: SOD CHLORIDE 0.9% 1,000 ML IV SCH (09:40)
[2017-07-27] MEDS: CEFTRIAXONE 1 GM/50 ML (PMX) 50 ML IVPB SCH (13:20)
--- NOTE | 2017-07-27 13:57 | PN ---
Date/Time of Note Date/Time of Note DATE: 07/27/17 TIME: 13:54 Assessment/Plan VTE Prophylaxis VTE Prophylaxis Intervention: SCD's Lines/Catheters IV [facility]ter Type (from [facility]): PICC Line Central line still needed: Yes Urinary Cath still in place: No Assessment/Plan Chief Complaint/Hosp Course A/P: 56-year-old male with a history of HIV, bilateral lateral DVT and PE diagnosed about 5 years ago, and history of bilateral hip replacement who presented to ER complaining of right hip pain, redness and swelling. 1. Right hip cellulitis - and CT scan with probable hematoma versus abscess - again status post fluid extraction by ultrasound-guided aspiration 2 days ago. Has been improving, however as mentioned before now having some pus drainage from needle site. -Continue IV antibiotics, follow-up final culture results -may need to consider reimaging right hip given new past drainage noticed today? - f/u ID consult rec's -have ordered Rocephin and vancomycin IV antibiotics to be administered to the patient at home for the next 2 weeks. - upon discussion with orthopedics and with infectious disease team, it is recommended patient go back to the hospital where his original surgery was performed in October 2014 and be reevaluated by the orthopedic surgeon there who performed the surgery.This was discussed extensively with the patient, he agrees to this plan, as well as the IV antibiotics at home for the next 2 weeks along with home health PT and nursing. 2. Sepsis, as evidenced by leukocytosis and tachycardia, secondary to right hip cellulitis-improving -See #1 3. Acute kidney injury -resolved now, monitor 4. History of HIV -f/u CD4 count and viral load -Continue home medication -ID to follow Problems: Subjective 24 Hr Interval Summary Free Text/Dictation Patient had PICC line placed yesterday. Per nursing staff, now having some pus drainage from hip area where needle aspiration was performed a few days ago. No fevers overnight. Exam/Review of Systems Vital Signs Vitals Vital Signs Date Time Temp Pulse Resp B/P Pulse Ox O2 Delivery O2 Flow Rate FiO2 07/27/17 08:00 97.5 63 18 123/81 96 07/23/17 23:00 Room Air Intake and Output 07/26/17 07/26/17 07/27/17 15:00 23:00 07:00 Intake Total 300 ml 1875 ml 1125 ml Output Total 500 ml 1200 ml Balance 300 ml 1375 ml -75 ml Exam Constitutional: alert, oriented Head: normocephalic Eyes: EOMI Respiratory: clear to auscultation, normal air movement Cardiovascular: S1, S2 heard Gastrointestinal: soft Musculoskeletal: other (less right hip swelling, erythema and tenderness) Results Result Diagram: 07/27/17 0458 07/27/17 0458 Results 24 hrs Laboratory Tests Test 07/27/17 04:58 White Blood Count 10.6 Red Blood Count 3.48 L Hemoglobin 11.6 L Hematocrit 36.7 L Mean Corpuscular Volume 105.5 H Mean Corpuscular Hemoglobin 33.3 H Mean Corpuscular Hemoglobin Concent 31.6 L Red Cell Distribution Width 12.4 Platelet Count 340 # Mean Platelet Volume 10.5 H Neutrophils % 57.1 Lymphocytes % 27.3 Monocytes % 8.4 Eosinophils % 4.0 Basophils % 0.7 Nucleated Red Blood Cells % 0.0 Neutrophils # 6.1 Lymphocytes # 2.9 Monocytes # 0.9 Eosinophils # 0.4 Basophils # 0.1 Nucleated Red Blood Cells # 0.0 Sodium Level 144 Potassium Level 5.1 Chloride Level 108 Carbon Dioxide Level 24 Anion Gap 17 H Blood Urea Nitrogen 18 Creatinine 1.19 Glucose Level 84 Calcium Level 9.1 Creatine Kinase 33 Medications Medications Current Medications Ondansetron HCl (Zofran Inj) 4 mg Q6H PRN IV NAUSEA AND/OR VOMITING; Start at 22:30 Acetaminophen (Tylenol Tab) 650 mg Q6H PRN PO PAIN LEVEL 1-3 OR FEVER Last administered on 07/26/17 18:40; Admin Dose 650 MG; Start 07/23/17 at 22:30 Morphine Sulfate (morphine) 3 mg Q4H PRN IV pain Last administered on 07:56; Admin Dose 3 MG; Start 07/23/17 at 22:30 Hydroxyzine Pamoate (Vistaril) 25 mg DAILY PO Last administered on 07/27/17 08:04; Admin Dose 25 MG; Start 07/24/17 at 09:00 Tramadol HCl (Ultram) 50 mg Q6 PRN PO PAIN Last administered on 07/27/17 05: 30; Admin Dose 50 MG; Start 07/24/17 at 00:30 Zolpidem Tartrate (Ambien) 5 mg QHS PRN PO INSOMNIA; Start 07/24/17 at 00:30 Cyanocobalamin (Vitamin B12) 1,000 mcg DAILY PO Last administered on 08:04; Admin Dose 1,000 MCG; Start 07/24/17 at 09:00 Cholecalciferol (Vitamin D) 5,000 unit DAILY PO Last administered on 08:03; Admin Dose 5,000 UNIT; Start 07/24/17 at 09:00 Lamivudine (Epivir) 300 mg DAILY PO Last administered on 07/27/17 08:04; Admin Dose 300 MG; Start 07/24/17 at 09:00 Abacavir Sulfate (Ziagen) 600 mg DAILY PO Last administered on 07/27/17 08:04 ; Admin Dose 600 MG; Start 07/24/17 at 09:00 Dolutegravir Sodium 50 mg 50 mg DAILY PO Last administered on 07/27/17 08:04 ; Admin Dose 50 MG; Start 07/24/17 at 09:00 Sodium Chloride 1,000 ml @ 75 mls/hr [id number] IV Last administered on 09:40; Admin Dose 75 MLS/HR; Start 07/24/17 at 15:00 Daptomycin 550 mg/ Sodium Chloride 100 ml @ 200 mls/hr Q24H IVPB Last administered on 07/26/17 18:36; Admin Dose 200 MLS/HR; Start 07/26/17 at 16: 00 Ceftriaxone Sodium (Rocephin) 50 ml @ 100 mls/hr Q24H IVPB Last administered on 07/27/17 13:20; Admin Dose 100 MLS/HR; Start 07/26/17 at 14:00 IV Flush (NS 10 ml) 10 ml PRN PRN IV IV PROTOCOL; Start 07/26/17 at 18:00 JOHN RODRIGUEZ Jul 27, 2017 13:57
[2017-07-27 14:00] VITALS: BP 133/91; RESP 18
--- NOTE | 2017-07-27 14:39 | CONS ---
Date/Time of Note Date/Time of Note DATE: 07/27/17 TIME: 14:37 Consult Date/Type/Reason Admit Date/Time Jul 23, 2017 at 21:56 Type of Consultation: ID Objective Vital Signs Date Time Temp Pulse Resp B/P Pulse Ox O2 Delivery O2 Flow Rate FiO2 07/27/17 08:00 97.5 63 18 123/81 96 07/23/17 23:00 Room Air Intake and Output 07/26/17 07/26/17 07/27/17 15:00 23:00 07:00 Intake Total 300 ml 1875 ml 1125 ml Output Total 500 ml 1200 ml Balance 300 ml 1375 ml -75 ml Results/Medications Result Diagram: 07/27/17 0458 07/27/17 0458 Results 24 hrs Laboratory Tests Test 07/27/17 04:58 White Blood Count 10.6 Red Blood Count 3.48 L Hemoglobin 11.6 L Hematocrit 36.7 L Mean Corpuscular Volume 105.5 H Mean Corpuscular Hemoglobin 33.3 H Mean Corpuscular Hemoglobin Concent 31.6 L Red Cell Distribution Width 12.4 Platelet Count 340 # Mean Platelet Volume 10.5 H Neutrophils % 57.1 Lymphocytes % 27.3 Monocytes % 8.4 Eosinophils % 4.0 Basophils % 0.7 Nucleated Red Blood Cells % 0.0 Neutrophils # 6.1 Lymphocytes # 2.9 Monocytes # 0.9 Eosinophils # 0.4 Basophils # 0.1 Nucleated Red Blood Cells # 0.0 Sodium Level 144 Potassium Level 5.1 Chloride Level 108 Carbon Dioxide Level 24 Anion Gap 17 H Blood Urea Nitrogen 18 Creatinine 1.19 Glucose Level 84 Calcium Level 9.1 Creatine Kinase 33 Medications Current Medications Ondansetron HCl (Zofran Inj) 4 mg Q6H PRN IV NAUSEA AND/OR VOMITING; Start at 22:30 Acetaminophen (Tylenol Tab) 650 mg Q6H PRN PO PAIN LEVEL 1-3 OR FEVER Last administered on 07/26/17 18:40; Admin Dose 650 MG; Start 07/23/17 at 22:30 Morphine Sulfate (morphine) 3 mg Q4H PRN IV pain Last administered on 07:56; Admin Dose 3 MG; Start 07/23/17 at 22:30 Hydroxyzine Pamoate (Vistaril) 25 mg DAILY PO Last administered on 07/27/17 08:04; Admin Dose 25 MG; Start 07/24/17 at 09:00 Tramadol HCl (Ultram) 50 mg Q6 PRN PO PAIN Last administered on 07/27/17 05: 30; Admin Dose 50 MG; Start 07/24/17 at 00:30 Zolpidem Tartrate (Ambien) 5 mg QHS PRN PO INSOMNIA; Start 07/24/17 at 00:30 Cyanocobalamin (Vitamin B12) 1,000 mcg DAILY PO Last administered on 08:04; Admin Dose 1,000 MCG; Start 07/24/17 at 09:00 Cholecalciferol (Vitamin D) 5,000 unit DAILY PO Last administered on 08:03; Admin Dose 5,000 UNIT; Start 07/24/17 at 09:00 Lamivudine (Epivir) 300 mg DAILY PO Last administered on 07/27/17 08:04; Admin Dose 300 MG; Start 07/24/17 at 09:00 Abacavir Sulfate (Ziagen) 600 mg DAILY PO Last administered on 07/27/17 08:04 ; Admin Dose 600 MG; Start 07/24/17 at 09:00 Dolutegravir Sodium 50 mg 50 mg DAILY PO Last administered on 07/27/17 08:04 ; Admin Dose 50 MG; Start 07/24/17 at 09:00 Sodium Chloride 1,000 ml @ 75 mls/hr [id number] IV Last administered on 09:40; Admin Dose 75 MLS/HR; Start 07/24/17 at 15:00 Daptomycin 550 mg/ Sodium Chloride 100 ml @ 200 mls/hr Q24H IVPB Last administered on 07/26/17 18:36; Admin Dose 200 MLS/HR; Start 07/26/17 at 16: 00 Ceftriaxone Sodium (Rocephin) 50 ml @ 100 mls/hr Q24H IVPB Last administered on 07/27/17 13:20; Admin Dose 100 MLS/HR; Start 07/26/17 at 14:00 IV Flush (NS 10 ml) 10 ml PRN PRN IV IV PROTOCOL; Start 07/26/17 at 18:00 Assessment/Plan Chief Complaint/Hosp Course SUBJECTIVE: No acute changes. The patient is alert, feels good, no fevers MICROBIOLOGY: Blood and urine culture negative. ANTIMICROBIALS: Daptomycin, Rocephin. He is also on Ziagen Tivicay Epivir. PHYSICAL EXAMINATION: GENERAL: Obese, well-developed, middle-aged man who is alert, in no distress. HEENT: Head atraumatic, normocephalic. Sclerae anicteric. Buccal mucosa pink. NECK: Supple. CHEST: Rise symmetrical. Breath sounds clear. HEART: S1, S2. ABDOMEN: Soft, bowel tones present. EXTREMITIES: Without cyanosis. ASSESSMENT: 1. Right hip cellulitis, possible septic joint with evidence of hematoma versus abscess per radiographic imaging. 2. Status post sepsis with tachycardia and leukocytosis. 3. Acute kidney injury. 4. Human immunodeficiency virus, well controlled with undetectable viral load. 5. History of bilateral total hip replacement. 6. History of deep venous thrombosis and pulmonary emboli 5 years ago. PLAN: The patient remains stable. Continue present care, anticipate dc on current antibiotics for 6 weeks. Pt to f/u with his ortho surgeon for further rec-s, continue BRENICE SMITH pt/staff Problems: SANAZ HERNANDEZ NP Jul 27, 2017 14:39
[2017-07-27] MEDS: DAPTOMYCIN IVPB SCH (17:30)
[2017-07-27] MEDS: SOD CHLORIDE 0.9% IVPB SCH (17:30)
[2017-07-27 19:35] VITALS: BP 129/79; RESP 18
[2017-07-28 01:58] VITALS: BP 141/79; RESP 18
[2017-07-28] MEDS: SOD CHLORIDE 0.9% 1,000 ML IV SCH ×2 (05:54→12:20)
[2017-07-28] MEDS: traMADol 50 MG TAB PO PRN ×2 (05:54→12:51)
[2017-07-28 08:00] VITALS: BP 137/80; RESP 17
[2017-07-28] MEDS: ABACAVIR 300 MG TAB PO SCH (08:39)
[2017-07-28] MEDS: DOLUTEGRAVIR SODIUM 50 MG TABLET PO SCH (08:40)
[2017-07-28] MEDS: LAMIVUDINE 150 MG TAB PO SCH (08:40)
[2017-07-28] MEDS: CHOLECALCIFEROL 1,000 UNIT TAB PO SCH (08:41)
[2017-07-28] MEDS: CYANOCOBALAMIN 500 MCG TAB PO SCH (08:41)
[2017-07-28] MEDS: hydrOXYzine PAMOATE 25 MG CAP PO SCH (08:41)
[2017-07-28] MEDS: CEFTRIAXONE 1 GM/50 ML (PMX) 50 ML IVPB SCH (13:26)
--- NOTE | 2017-07-28 13:47 | PDOCDIS ---
Discharge Instructions CONDITION Patient Condition: Stable HOME CARE INSTRUCTIONS: Special Diet: REGULAR ACTIVITY: Activity Restrictions: Slowly Increase Activity FOLLOW UP/APPOINTMENTS Follow-up Plan Please take your medications as prescribed, including your IV medications to treat your infection. Please follow-up with orthopedic doctor in [facility] as well as regular doctor in the clinic in the next 1-2 weeks. JOHN RODRIGUEZ Jul 28, 2017 13:47
[2017-07-28] MEDS: DAPTOMYCIN IVPB SCH (15:56)
[2017-07-28] MEDS: SOD CHLORIDE 0.9% IVPB SCH (15:56)
--- NOTE | 2017-07-28 17:13 | DS ---
DATE OF ADMISSION: 07/23/2017 DATE OF DISCHARGE: 07/28/2017 HOSPITAL COURSE: This is a 56-year-old male. The patient came in with right hip pain with right hip cellulitis: He also had a CT scan that showed a probable hematoma versus an abscess in the lateral aspect of the right hip, so patient was admitted,placed on broad spectrum antibiotics, and seen by Infectious Disease team during this hospital stay. He also underwent ultrasound guided aspiration of the fluid during this admission. His culture did grow back group A strep or strep pyogenes, and he does have a history of hip replacement performed about two and a half years prior to this admission. Initially orthopedic surgery team was consulted here, but they recommended transferring the patient back to the hospital where he had a surgery performed, which the patient states was believed to be somewhere in [facility]. He did not remember the name of the surgeon, who performed at that time. In any event, he was treated conservatively with IV antibiotics. He still had some mild drainage, but that was getting better from the hip area. By the time of discharge, his white blood cell count trended down to normal range. He was able to ambulate after being seen by physical therapy team and tolerated a p.o. diet. In discussion with the consulting teams, it was recommended that the patient get 6 weeks of IV antibiotics to complete treatment of the hip infection as his cellulitis is getting better and is close to being resolved. It was extensively discussed with the patient about the importance of patient going back to his orthopedic surgery doctor in the [facility] area to have his hip replaced re-evaluated as there was a concern of an infected joint. In any event, we are sending him home with antibiotics for 6 weeks. He did receive a PICC line as well. So, he will go back with the following medications. 1. Rocephin 1 g IV daily for 6 weeks. 2. Daptomycin IV daily for 6 weeks and he will need to follow up with orthopedic surgery doctor in the [facility] area in the next 1 to 2 weeks and his primary care doctor in clinic in next 1 to 2 weeks. He will also go home on following medications, azithromycin 600 mg daily. 3. Calcium carbonate 600 mg. 4. B12 vitamin 1000 mcg daily, 5. Prezista 600 mg daily. 6. Triumeq mEq tablet 1 tab daily. 7. Vitamin D 5000 units daily. 8. [place] p.r.n. 9. Hydroxyzine 25 mg p.o. q.6 p.r.n. 10. Lisinopril 10 mg daily. 11. Phentermine 15 mg daily. 12. Norvir 100 mg p.o. daily. 13. Bactrim 1 tab p.o. daily. 14. Tramadol 50 mg p.o. q.6 p.r.n. 15. Vitamin B complex daily. 16. Ambien 5 mg p.o. nightly p.r.n. FINAL DIAGNOSES: 1. Right hip pain secondary to right hip cellulitis and status post ultrasound guided aspiration of hematoma versus abscess in the right hip. 2. Acute kidney injury, resolved. 3. History of human immunodeficiency virus. Of note, his CD4 count was found to be 462, and his viral load was less than 20. 4. History of bilateral hip replacement two and a half years ago. 5. History of bilateral deep vein thrombosis and pulmonary embolism in the past. Time to discharge the patient, 45 minutes. Dictated By: Hna Garcia MD /lucio/carlos /Document#: [id number]
== END 2017-07-28 17:45 | disposition home health service (06) | DRG 975 ==
LOC: FTE 16:10 → PP2 21:56
PROVIDERS: ADMIT Internal Medicine; ATTEND Internal Medicine
PROC: 0J9L3ZX Drainage of Right Upper Leg Subcutaneous Tissue and Fascia, Percutaneous Approach, Diagnostic (ICD-10-PCS; principal; 2017-07-25)
PROC: 02HV33Z Insertion of Infusion Device into Superior Vena Cava, Percutaneous Approach (ICD-10-PCS; 2017-07-26)
DX: B20 Human immunodeficiency virus [HIV] disease (principal); A41.9 Sepsis, unspecified organism; N17.9 Acute kidney failure, unspecified; L03.115 Cellulitis of right lower limb; L02.415 Cutaneous abscess of right lower limb; Z96.643 Presence of artificial hip joint, bilateral; Z86.718 Personal history of other venous thrombosis and embolism; Z86.711 Personal history of pulmonary embolism; B95.0 Streptococcus, group A, as the cause of diseases classified elsewhere
CPT/HCPCS: 36569; 71010; 73700; 76536; 76705; 76937; 80048; 80053; 80202; 81001; 82550; 82565; 83605; 83735; 83986; 84100; 84520; 85025; 85610; 85730; 86140; 86360; 87040; 87070; 87075; 87086; 87536; 89060; 90686; 93005; 97110; 97116; 97162; 97530; J0692; J0696; J2270; J3370; J7030

== ENCOUNTER 2017-08-17 11:05 | Emergency (ER) | payer MEDICARE, BC ==
[~2017-08-17] VITALS: Ht 167.6 cm; Wt 93.1 kg
[~2017-08-17 11:05] MED LIST changes: +ABAC1TAB12 PO; +CALC650T12 PO; +CHOL400C PO; +HYDR25CA98 PO; +LISI10TA2 PO; +PHEN30CA2 PO; +TRAM50TA2 PO; +VITA1TAB83 PO; +ZOLP5TAB PO; +[UNRECOGNIZED DRUG - CODE] SL
[2017-08-17 11:13] VITALS: Ht 167.6 cm; Wt 93.1 kg
--- NOTE | 2017-08-17 11:33 | ERD ---
ER Documentation Chief Complaint Chief Complaint Sent from for merry HPI 56y/o male patient with with history of HIV and right hip cellulitis, presents to the emergency department with his partner referred by his primary doctor for evaluation of possible elevation of the liver enzymes secondary to antibiotic. The patient was diagnosed with a right hip abscess and cellulitis 2 weeks ago and was started on Cubicin and ceftriaxone IV through PICC line. Currently the patient refers feeling good, no fever, no chills, no pain, no abdominal pain. Good compliance to medication, the patient needs to complete 6 weeks of IV antibiotics ROS SYSTEMIC symptoms: no fever, chills, no night sweats, no weight loss EYE symptoms: No blurred vision, no eye discharge OTOLARYNGEAL symptoms: No hearing loss. No ear pain, no sore throat CARDIOVASCULAR symptoms: No chest pain or discomfort, no palpitations. PULMONARY symptoms: No dyspnea, no cough, no wheezing. GASTROINTESTINAL symptoms: No abdominal pain, no nausea, no vomiting, no diarrhea MUSCULOSKELETAL symptoms: No arthralgias, no muscle aches. NEUROLOGY symptoms: No confusion, no syncope, no numbness or tingling. SKIN no rashes Medications Home Meds Reported Medications Abacavir/Dolutegravir/Lamivudi (Triumeq Tablet) 1 Each Tablet, 1 EACH PO, TAB 07/23/17 Vitamin B Complex (B Complex # 1) 1 Each Tablet, 1 EACH PO, TAB 07/23/17 Phentermine Hcl (Phentermine Hcl) 30 Mg Capsule, 15 MG PO DAILY, CAP 07/23/17 Tramadol HCl (Tramadol HCl) 50 Mg Tablet, 50 MG PO Q6 Y for PAIN, #120 TAB 07/23/17 Cyanocobalamin (Vitamin B-12) (Vitamin B-12) 1,000 Mcg Tab.subl, 1000 MCG SL DAILY 07/23/17 Calcium Carbonate (Calcium Carbonate) 650 Mg Tablet, 600 MG PO, TAB 07/23/17 Ergocalciferol (Vitamin D) 400 Unit Capsule, 5000 UNIT PO DAILY, CAP 07/23/17 Lisinopril* (Lisinopril*) 10 Mg Tablet, 10 MG PO DAILY, #30 TAB 07/23/17 Zolpidem Tartrate* (Ambien*) 5 Mg Tablet, 5 MG PO QHS Y for INSOMNIA, #30 TAB 07/23/17 Hydroxyzine Pamoate* (Hydroxyzine Pamoate*) 25 Mg Capsule, 25 MG PO, #40 CAP 07/23/17 Ritonavir* (Norvir*) 100 Mg Tablet, 1 TAB PO 11/14/12 Darunavir Ethanolate* (Prezista*) 600 Mg Tablet, 1 TAB PO 11/14/12 Azithromycin* (Azithromycin*) 600 Mg Tablet, 1 TAB PO 11/14/12 Sulfamethoxazole-Trimethoprim* (Bactrim* DS) 1 Tab Tab, 1 TAB PO 11/14/12 Hydrocodone Bit-Acetaminophen (Hydrocodone-APAP) 1 Tab Tablet, 1 TAB PO 11/14/12 Emtricitabine-Tenofovir* (Truvada*) 1 Tab Tab, 1 TAB PO DAILY 11/14/12 Allergies Allergies: Coded Allergies: No Known Allergy (Unverified , 11/14/12) PMhx/Soc History of Surgery: Yes (BILATERAL HIP REPLACEMENT 2 YRS AGO (6MOS APART), [facility] ) Anesthesia Reaction: No Hx Neurological Disorder: No Hx Respiratory Disorders: Yes (ASTHMA) Hx Cardiac Disorders: Yes (HTN) Hx Psychiatric Problems: No Hx Miscellaneous Medical Probl: No Hx Alcohol Use: Yes (OCCASSIONALLY ) Hx Substance Use: No Hx Tobacco Use: No Physical Exam Vitals Vital Signs Date Time Temp Pulse Resp B/P Pulse Ox O2 Delivery O2 Flow Rate FiO2 08/17/17 11:13 98.0 81 20 146/87 98 Physical Exam Patient is in no acute distress, vital signs stable. Alert and fully oriented. EYES: PERRLA, EOMI, Sclera and conjunctiva appear normal. EARS: Canals clear, tympanic membranes WNL THROAT: Normal oropharynx. NECK: Supple, No lymphadenopathy. Full ROM without pain or tenderness. HEART: RRR, no rubs, murmurs, clicks or gallops. LUNGS: Clear to auscultation. ABDOMEN: Soft, non-tender without masses or hepatosplenomegaly. EXTREMITIES: Right hip: Nontender, no erythema, no fluctuation. left arm with PICC line, no evidence of infection MUSC: Full ROM, no deformity, normal back exam Result Diagram: 08/17/17 1200 08/17/17 1200 Results 24 hrs Laboratory Tests Test 08/17/17 12:00 White Blood Count 7.210^3/ul Red Blood Count 3.9910^6/ul Hemoglobin 13.5g/dl Hematocrit 41.2% Mean Corpuscular Volume 103.3fl Mean Corpuscular Hemoglobin 33.8pg Mean Corpuscular Hemoglobin Concent 32.8g/dl Red Cell Distribution Width 12.6% Platelet Count 82308^3/UL Mean Platelet Volume 10.2fl Neutrophils % 53.1% Lymphocytes % 31.5% Monocytes % 8.3% Eosinophils % 6.2% Basophils % 0.8% Nucleated Red Blood Cells % 0.0/100WBC Neutrophils # 3.810^3/ul Lymphocytes # 2.310^3/ul Monocytes # 0.610^3/ul Eosinophils # 0.510^3/ul Basophils # 0.110^3/ul Nucleated Red Blood Cells # 0.010^3/ul Sodium Level 142mmol/L Potassium Level 4.2mmol/L Chloride Level 106mmol/L Carbon Dioxide Level 29mmol/L Anion Gap 11 Blood Urea Nitrogen 24mg/dl Creatinine 1.19mg/dl Glucose Level 113mg/dl Calcium Level 10.0mg/dl Total Bilirubin 0.1mg/dl Direct Bilirubin 0.00mg/dl Indirect Bilirubin 0.1mg/dl Aspartate Amino Transf (AST/SGOT) 39IU/L Alanine Aminotransferase (ALT/SGPT) 57IU/L Alkaline Phosphatase 94IU/L Creatinine Kinase MB (Mass) 1.47ng/ml Total Protein 7.8g/dl Albumin 4.0g/dl Globulin 3.80g/dl Albumin/Globulin Ratio 1.05 Current Medications Medications (Trade) Dose Ordered Sig/Lesvia Route PRN Reason Start Time Stop Time Status Last Admin Dose Admin Alteplase, Recombinant (Cathflo (Activase)) 4 mg MAY REPEAT X1 PRN CATHETER IF CATHETER REMAINS OCCULUDED 08/17/17 12:00 08/17/17 12:44 Procedures/MDM 56 y/o male patient with history of HIV and right hip abscess, presents to the ED for evaluation of liver function and kidney function after being taking Cubicin and ceftriaxone IV for 2 weeks. Vital signs stable, Physical exam unremarkable. Differential diagnosis include but not limited to: Drug adverse reaction, hepatitis, pancreatitis, autoimmune transaminitis. Pertinent Data: Labs: CBC: normal, CMP: normal kidney and liver function, normal electrolytes. Physical examination and clinical presentation consistent most likely with right hip abscess, resolving. During the ED course the patient remained asymptomatic no new complaints. Results and clinical impression discussed with patient who agrees with management. The patient is stable to continue IV Cubicin and ceftriaxone to complete 6 weeks. If symptoms persist, worsen or new symptoms develop, then patient is instructed to follow-up with the primary care provider. If the patient is unable to see the primary care provider, then return to the ED immediately. Departure Diagnosis: Primary Impression: Abscess of hip, right Additional Impression: Receiving intravenous antibiotic treatment as outpatient Condition: Stable Patient Instructions: Caring for Your Peripherally Inserted Central Catheter ( PICC) Additional Instructions: Thank you very much for allowing us to participate in your care. Your health and safety is our top priority at [facility]. Have prescriptions filled and follow precisely the directions on the label. Follow-up with primary care provider during the next 4 days and bring all the information and medications prescribed. If illness has not improved in 2 days, then make an appointment with primary care provider. If the provider is unavailable, return to the Emergency Department immediately. MARYAN GARCIA MD Aug 17, 2017 11:33
[2017-08-17] MEDS ORDERED: ALTEPLASE (CATHFLO) 2 MG INJ CATHETER PRN (12:00)
[2017-08-17 12:12] LABS: BASOPHIL # 0.1 10^3/ul (0.0-0.1); BASOPHILS % 0.8 % (0.0-2.0); EOSINOPHILS # 0.5 10^3/ul (0.0-0.5); EOSINOPHILS % 6.2 % (0.0-7.0); HEMATOCRIT 41.2 % (42.0-52.0); HEMOGLOBIN 13.5 g/dl (14.0-18.0); LYMPHOCYTES # 2.3 10^3/ul (0.8-2.9); LYMPHOCYTES % 31.5 % (15.0-51.0); MEAN CORPUSCULAR HEMOGLOBIN 33.8 pg (29.0-33.0); MEAN CORPUSCULAR HGB CONC 32.8 g/dl (32.0-37.0); MEAN CORPUSCULAR VOLUME 103.3 fl (82.0-101.0); MEAN PLATELET VOLUME 10.2 fl (7.4-10.4); MONOCYTE # 0.6 10^3/ul (0.3-0.9); MONOCYTES % 8.3 % (0.0-11.0); NEUTROPHIL # 3.8 10^3/ul (1.6-7.5); NEUTROPHILS % 53.1 % (39.0-77.0); PLATELET COUNT 189 10^3/UL (140-415); RED BLOOD COUNT 3.99 10^6/ul (4.70-6.10); RED CELL DISTRIBUTION WIDTH 12.6 % (11.5-14.5); WHITE BLOOD COUNT 7.2 10^3/ul (4.8-10.8)
[2017-08-17 12:28] LABS: ALBUMIN/GLOBULIN RATIO 1.05; BILIRUBIN,INDIRECT 0.1 mg/dl (0-1.1); BILIRUBIN,TOTAL 0.1 mg/dl (0.2-1.3); CREATININE 1.19 mg/dl (0.61-1.24); POTASSIUM 4.2 mmol/L (3.5-5.1); TOTAL PROTEIN 7.8 g/dl (6.1-8.1)
[2017-08-17 12:35] LABS: CK-MB 1.47 ng/ml (0.0-2.4)
== END 2017-08-17 14:02 | disposition home or self-care (01) ==
LOC: FTE 11:05
DX: L02.415 Cutaneous abscess of right lower limb (principal); J45.909 Unspecified asthma, uncomplicated; I10 Essential (primary) hypertension; Z96.643 Presence of artificial hip joint, bilateral
CPT/HCPCS: 36593; 80053; 82553; 85025; 99283; J2997